=== PATIENT | male | born 1990 | race American Indian/Alaskan Native ===

== ENCOUNTER 2017-12-03 18:48 | Emergency (ER) | payer OTHER ==
[2017-12-03 19:34] VITALS: BP 133/87
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
== END 2017-12-03 23:00 | disposition home or self-care (01) ==
LOC: ED 18:48
DX: R07.81 Pleurodynia (principal); J45.909 Unspecified asthma, uncomplicated; F17.200 Nicotine dependence, unspecified, uncomplicated; F12.90 Cannabis use, unspecified, uncomplicated; Z90.89 Acquired absence of other organs; Z91.02 Food additives allergy status; Z79.899 Other long term (current) drug therapy; V49.49XA Driver injured in collision with other motor vehicles in traffic accident, initial encounter; W22.11XA Striking against or struck by driver side automobile airbag, initial encounter; Y93.89 Activity, other specified; Y99.8 Other external cause status; Y92.488 Other paved roadways as the place of occurrence of the external cause

== ENCOUNTER 2019-08-04 10:28 | Emergency (ER) | payer OTHER ==
[2019-08-04] MEDS ORDERED: diphenhydrAMINE 50 MG/ML VIAL IV ONE (10:51)
[2019-08-04] MEDS ORDERED: SUMAtriptan SUCCINATE 6 MG/0.5 ML INJ SUB-Q ONE (10:51)
[2019-08-04] MEDS ORDERED: METOCLOPRAMIDE 10 MG/2 ML INJ IV ONE (10:51)
[2019-08-04] MEDS ORDERED: SODIUM CHLORIDE 0.9% 1000 ML 1,000 ML IV ONE (10:51)
--- NOTE | 2019-08-04 11:07 | Emergency Department Report ---
ED Headache HPI - General Chief Complaint: Headache Stated Complaint: MIGRAINE Time Seen by Provider: 08/04/19 10:51 - History of Present Illness Initial Comments: Patient is a 28-year-old male with a history of chronic migraines who presents the emergency room with complaints of a migraine for 7 days. He states it is located in the right temporal region. He states he has sensitivity to light and sounds. He has associated nausea and vomiting. He states that the right eye has been watering and he has had a little bit of a runny nose. He denies any fever, vision changes, neck stiffness, numbness, weakness, gait disturbance, speech disturbance. He states this migraine feels similar to prior migraines. He states that he used to take Maxalt but does not have anymore and that worked well for his migraines. He states that he has seen a neurologist multiple times in the past. He states in the past he has had approximately 3 CT head imaging performed which he states were all normal. Patient states he has attempted to take Goody's powder, Excedrin Migraine, Tylenol without much relief. He has an allergy to iodine. Allergies/Adverse Reactions: Allergies iodine Allergy (Verified 12/03/17 19:34) Swelling Home Medications: Ambulatory Orders Cyclobenzaprine [Flexeril] 10 mg PO TID PRN #30 tablet 12/03/17 Menthol/Camphor [[place] Ointment] 1 applicatio TP TID PRN #1 tube 12/03/17 Naproxen [Naprosyn] 500 mg PO BID PRN #30 tablet 12/03/17 Rizatriptan Benzoate [Maxalt] 10 mg PO Q2HR PRN #20 tab 08/04/19 ED Review of Systems ROS: Stated complaint: MIGRAINE Other details as noted in HPI Comment: All other systems reviewed and negative ED Past Medical Hx - Past Medical History Previous Medical History?: Yes Hx Asthma: Yes - Surgical History Past Surgical History?: Yes Additional Surgical History: tonsilectomy - Social History Smoking Status: Current Every Day Smoker Substance Use Type: Alcohol, Non Opiate Pain - Medications Home Medications: Home Medications Medication Instructions Recorded Confirmed Last Taken Type Cyclobenzaprine [Flexeril] 10 mg PO TID PRN #30 tablet 12/03/17 Unknown Rx Menthol/Camphor [[place] 1 applicatio TP TID PRN #1 tube 12/03/17 Unknown Rx Ointment] Naproxen [Naprosyn] 500 mg PO BID PRN #30 tablet 12/03/17 Unknown Rx Rizatriptan Benzoate [Maxalt] 10 mg PO Q2HR PRN #20 tab 08/04/19 Unknown Rx ED Physical Exam - General Limitations: No Limitations General appearance: alert, in no apparent distress - Head Head exam: Present: atraumatic, normocephalic - Eye Eye exam: Present: PERRL, EOMI, other (watering of the right eye present, no purulent drainage). Absent: scleral icterus, nystagmus, periorbital swelling, periorbital tenderness Pupils: Present: normal accommodation - ENT ENT exam: Present: mucous membranes moist - Neck Neck exam: Present: normal inspection, full ROM. Absent: tenderness, meningismus - Respiratory Respiratory exam: Present: normal lung sounds bilaterally. Absent: respiratory distress, wheezes, rales, rhonchi, stridor, chest wall tenderness, accessory muscle use, decreased breath sounds, prolonged expiratory - Cardiovascular Cardiovascular Exam: Present: regular rate, normal rhythm, normal heart sounds. Absent: systolic murmur, diastolic murmur, rubs, gallop - Neurological Exam Neurological exam: Present: alert, oriented X3, CN II-XII intact, normal gait, other (normal finger to nose, normal heel to munoz, 5/5 muscle strength in the BUE/BLE, sensation intact throughout, no focal neuro deficit). Absent: motor sensory deficit - Psychiatric Psychiatric exam: Present: normal affect, normal mood - Skin Skin exam: Present: warm, dry, intact ED Course Vital Signs 08/04/19 08/04/19 08/04/19 10:30 10:50 12:09 Temperature 97.6 F Pulse Rate 52 L 52 L Respiratory 18 18 14 Rate Blood Pressure 131/77 Blood Pressure 155/101 [Left] O2 Sat by Pulse 99 99 100 Oximetry ED Medical Decision Making - Medical Decision Making Patient is a 28-year-old male with a history of chronic migraines who presents the emergency room with complaints of a migraine for 7 days. He states it is located in the right temporal region. He states he has sensitivity to light and sounds. He has associated nausea and vomiting. He states that the right eye has been watering and he has had a little bit of a runny nose. He denies any fever, vision changes, neck stiffness, numbness, weakness, gait disturbance, speech disturbance. He states this migraine feels similar to prior migraines. He states that he used to take Maxalt but does not have anymore and that worked well for his migraines. He states that he has seen a neurologist multiple times in the past. He states in the past he has had approximately 3 CT head imaging performed which he states were all normal. Patient states he has attempted to take Goody's powder, Excedrin Migraine, Tylenol without much relief. He has an allergy to iodine. Patient does have watering present from the right eye, no purulent drainage, EOMI, PERRL, no neurological deficits. Patient given 1 L IV fluids, Reglan, Benadryl, sumatriptan. Patient's headache completely resolved and he was feeling much better and ready to go home. Patient could have possible mixed migraines versus cluster headaches. Patient given prescription for Maxalt as he states this is helped his migraines before. Patient will be referred to a neurologist for further evaluation. advised pt Please take medic ation as prescribed as needed. Increase your water intake. Please avoid migraine triggers. Return to the emergency room for any new or worsening symptoms. - Differential Diagnosis Tension NOEL, cluster headache, migraine, sinusitis, meningitis, CVA, ICH Critical care attestation.: If time is entered above; I have spent that time in minutes in the direct care of this critically ill patient, excluding procedure time. ED Disposition Clinical Impression: Headache Qualifiers: Headache type: unspecified Headache chronicity pattern: acute headache Intractability: not intractable Qualified Code(s): R51 - Headache Disposition: DC-01 TO HOME OR SELFCARE Is pt being admited?: No Does the pt Need Aspirin: No Condition: Stable Instructions: Cluster Headache (ED), Migraine Headache (ED) Additional Instructions: Please take medication as prescribed as needed. Increase your water intake. Please avoid migraine triggers. Return to the emergency room for any new or worsening symptoms. Prescriptions: Rizatriptan Benzoate [Maxalt] 10 mg PO Q2HR PRN #20 tab PRN Reason: headache Referrals: VENTURA BUTLER MD [Primary Care Provider] - 2-3 Days MAYUR MORTON MD [Staff Physician] - 2-3 Days TABATHA FAIRCHILD MD [Referring] - 2-3 Days Forms: Work/School Release Form(ED) Time of Disposition: 11:51 Print Language: GREEK
[2019-08-04 12:10] VITALS: BP 155/101
== END 2019-08-04 12:12 | disposition home or self-care (01) ==
LOC: ED 10:28
DX: G43.909 Migraine, unspecified, not intractable, without status migrainosus (principal); J45.909 Unspecified asthma, uncomplicated; F17.200 Nicotine dependence, unspecified, uncomplicated
CPT/HCPCS: 96361; 96372; 96374; 96375; 99282; J1200; J2765; J7030; J3030